=== PATIENT | male | born 1955 | race Caucasian/White ===

== ENCOUNTER 2021-12-04 08:41 | Inpatient (IN) ==
--- NOTE | 2021-11-23 12:01 | Anesthesiology Consultation ---
Date of Service November 23, 2021 Assessment & Plan (1) Encounter for pre-operative examination: Chart Review Chart Review: Acceptable Risk for Surgery (pending preop Covid testing results and response from PCP ) and Patient NOT seen in Pre Admission Testing -Sent note to PCP regarding if kidney function is baseline for patient- will await results Per nursing assessment 11/23/2021, pt traveled to [place] on 10/26/21 to visit family (drove). No PPE. No large crowds. No known Covid positive exposures or Covid related symptoms. No known COVID infection in the past 90 days. Patient is fully vaccinated for COVID. Preop Covid testing will need done 2-4 days prior to surgery= will await results History Surgery Operation Date: 12/04/21 07:15 Proposed Procedures p C7-T1 Anterior Cervical Discectomy Fusion; Neruo Monitoring - Micheal Adhikari DO Height/Weight Height: 5 ft 10 in Weight: 90.718 kg Allergies Allergy/AdvReac Type Severity Reaction Status Date / Time No Known Allergies Allergy Verified 11/23/21 10:14 Medications Home Medications Medication Instructions Recorded Confirmed Last Taken ascorbic acid (vitamin C) 500 mg 500 mg PO QAM 11/23/21 11/23/21 Unknown tablet (Vitamin C) aspirin 81 mg chewable tablet 81 mg PO QAM 11/23/21 11/23/21 Unknown atorvastatin 20 mg tablet (Lipitor) 20 mg PO QAM 11/23/21 11/23/21 Unknown calcium phosphate,dibasic 77 1 tab PO QAM 11/23/21 11/23/21 Unknown mg-vitamin D3 400 unit tablet citalopram 40 mg tablet (Celexa) 40 mg PO QAM 11/23/21 11/23/21 Unknown famotidine 20 mg tablet (Pepcid) 20 mg PO QAM 11/23/21 11/23/21 Unknown lisinopril 10 mg tablet 10 mg PO QAM 11/23/21 11/23/21 Unknown oxycodone 10 mg tablet 10 mg PO TID PRN 11/23/21 11/23/21 Unknown Past Medical History Medical History GERD (gastroesophageal reflux disease) History of syncope HAD 1 EPISODE IN 2007, WAS SEEN BY CARDIO AT THE TIME CLEARED; UNSURE OF WHAT CAUSED EPISODE WAS TOLD BY EVERYTHING WAS FINE W/ HIS HEART. (PT THINKS [facility] NO ISSUES SINCE Hyperlipidemia Hypertension Personal history of renal cancer KIDNEY REMOVED IN 2019- NO CHEMO OR RADIATION NECESSARY- HAD DONE IN [place]- DR OROZCO- NO CURRENT ISSUES S/p nephrectomy RIGHT- DUE TO RENAL CA- DONE IN [place]- DR OROZCO Past Surgical History Surgical History S/P colonoscopy S/P decompression of ulnar nerve RIGHT S/P hip replacement left S/P lumbar spine operation 10 YRS AGO Social History Smoking Status: Former smoker Do You Dip or Chew Tobacco: No Smoking End Date: 1999 Hx Alcohol Use: Yes Alcohol type: beer, wine and hard liquor alcohol intake frequency: holidays/special occasions only Hx Substance Use: Yes (HELPS W/ PAIN AND APPETITE- USES PRN) substance use type: marijuana Lab Results Anesthesia Preop Results Results Anesthesia Widget: WBC 8.42 K/uL (4.8-10.8) 11/21/21 Hgb 14.4 g/dL (14.0-18.0) 11/21/21 Hct 41.9 % (42-52) L 11/21/21 Plt 174 K/uL (130-400) 11/21/21 Na 137 mmol/L (136-145) 11/21/21 K 4.8 mmol/L (3.5-5.1) 11/21/21 Cl 107 mmol/L (98-107) 11/21/21 CO2 22 mmol/L (21-32) 11/21/21 BUN 42 mg/dl (6-23) H 11/21/21 Creat 2.06 mg/dl (0.6-1.4) H 11/21/21 Glucose Level 125 mg/dl (70-99(Fasting)) H 11/21/21 PTT 26.5 Seconds (21.0-31.0) 11/21/21 Urine Color Dark Yellow 11/21/21 Urine Appearance Clear (Clear) 11/21/21 Urine pH 5.0 (4.5-7.5) 11/21/21 Urine Specific [place] 1.028 (1.000-1.030) 11/21/21 Urine Protein Negative (Negative) 11/21/21 Urine Glucose (UA) Negative (Negative) 11/21/21 Urine Ketones Trace (Negative) H 11/21/21 Urine Blood Negative (Negative) 11/21/21 Urine Nitrite Negative (Negative) 11/21/21 Urine Bilirubin Negative (Negative) 11/21/21 Urine Urobilinogen Negative (Negative) 11/21/21 Urine Leukocyte Esterase Negative (Negative) 11/21/21 Testing Laboratory Results 11/21/21= URINE CULTURE: No growth Electrocardiogram Date: 11/21/21 Sinus rhythm with short FL with occasional PACs at 73 bpm Otherwise normal EKG per cardio Chest X-Ray Date: 11/21/21 Findings: + NAD
[~2021-12-04 08:41] MED LIST: ACETAMINOPHEN 500 MG TAB PO SCH; CeleBREX 200 MG CAP PO SCH; GABAPENTIN 300 MG CAP PO SCH; LR 15ML/HR IV SCH; SUGAMMADEX SODIUM 200 MG/2 ML VIAL IV ONE; ceFAZolin 2000MG 2,000 MG/15 ML SYR IV SCH
[2021-12-04] MEDS ORDERED: LIDOCAINE 2% 2 ML VIAL/AMP(20MG/ML) INFIL ONE (08:48)
[2021-12-04] MEDS ORDERED: fentaNYL citrate 100 MCG/2 ML VIAL ONE (08:48)
[2021-12-04] MEDS ORDERED: PROPOFOL IV EMULSION 10 MG/ML 20 ML VIAL IV ONE (08:48)
[2021-12-04] MEDS ORDERED: DEXAMETHASONE SOD INJ 4 MG/ML VIAL ONE (08:48)
[2021-12-04] MEDS ORDERED: MIDAZOLAM HCL 1 MG/ML 2ML VIAL ONE (08:48)
[2021-12-04] MEDS ORDERED: NEOSTIGMINE METHYLSULFATE 1 MG/ML 10ML VIAL ONE (08:48)
[2021-12-04] MEDS ORDERED: GLYCOPYRROLATE 0.2 MG/ML VIAL ONE (08:48)
[2021-12-04] MEDS ORDERED: ONDANSETRON INJ 2 MG/ML 2 ML VIAL ONE (08:48)
--- NOTE | 2021-12-04 09:23 | History & Physical Bridge Note ---
Date of Service December 04, 2021 History & Physical Bridge Note I have examined the patient, reviewed the History & Physical and in the interval since the performance of the History & Physical I have noted the following changes of clinical significance: no changes noted
--- NOTE | 2021-12-04 09:25 | History & Physical Report ---
Date of Service December 04, 2021 Assessment & Plan (1) Cervical stenosis of spinal canal: Plan: See 7 T1 anterior cervical discectomy and fusion History of Present Illness Chief Complaint: Neck and arm pain Primary Care Provider: Junito Puga DO This is a 66-year-old male presents with chronic persistent neck and arm pain after failed course of nonoperative care is here for surgical invention. Allergies Allergy/AdvReac Type Severity Reaction Status Date / Time No Known Allergies Allergy Verified 12/04/21 09:24 Home Medications Medication Instructions Recorded Confirmed Type ascorbic acid (vitamin C) 500 mg 500 mg PO QAM 11/23/21 11/23/21 History tablet (Vitamin C) aspirin 81 mg chewable tablet 81 mg PO QAM 11/23/21 11/23/21 History atorvastatin 20 mg tablet (Lipitor) 20 mg PO QAM 11/23/21 11/23/21 History calcium phosphate,dibasic 77 1 tab PO QAM 11/23/21 11/23/21 History mg-vitamin D3 400 unit tablet citalopram 40 mg tablet (Celexa) 40 mg PO QAM 11/23/21 11/23/21 History famotidine 20 mg tablet (Pepcid) 20 mg PO QAM 11/23/21 11/23/21 History lisinopril 10 mg tablet 10 mg PO QAM 11/23/21 11/23/21 History oxycodone 10 mg tablet 10 mg PO TID PRN 11/23/21 11/23/21 History Past Med/Surg History Medical History GERD (gastroesophageal reflux disease) History of syncope HAD 1 EPISODE IN 2007, WAS SEEN BY CARDIO AT THE TIME CLEARED; UNSURE OF WHAT CAUSED EPISODE WAS TOLD BY EVERYTHING WAS FINE W/ HIS HEART. (PT THINKS [facility] NO ISSUES SINCE Hyperlipidemia Hypertension Personal history of renal cancer KIDNEY REMOVED IN 2019- NO CHEMO OR RADIATION NECESSARY- HAD DONE IN [place]- DR OROZCO- NO CURRENT ISSUES S/p nephrectomy RIGHT- DUE TO RENAL CA- DONE IN [place]- DR OROZCO Surgical History S/P colonoscopy S/P decompression of ulnar nerve RIGHT S/P hip replacement left S/P lumbar spine operation 10 YRS AGO Social History Smoking Status: Former smoker Smoking End Date: 1999; Second Hand Exposure: No; Do You Dip or Chew Tobacco: No; Tobacco Cessation Education Requested by Patient: No Hx Alcohol Use: Yes Alcohol type: beer, wine and hard liquor Hx Substance Use: Yes (HELPS W/ PAIN AND APPETITE- USES PRN) Preferred Language: Dutch Communication Ability: Effective Hand Launderer Required: No Beliefs That Will Affect Care: None Current Living Situation: Spouse Other Information That Helps Us Care for You: No Feels Safe at Home: Yes Safety Concerns: Feels Safe At This Time Assistive Devices: Denture - Upper and Glasses Physical Exam Physical Exam: Patient is alert and oriented Heart regular rhythm Lungs clear
[2021-12-04] MEDS ORDERED: ceFAZolin 330 MG/ML 1 GM VIAL ONE (09:47)
[2021-12-04] MEDS ORDERED: fentaNYL citrate 100 MCG/2 ML VIAL IV PRN (09:48)
[2021-12-04] MEDS ORDERED: ePHEDrine sulfate 50 MG/ML AMP IV PRN (09:48)
[2021-12-04] MEDS ORDERED: ATROPINE SULFATE 0.1 MG/ML 10ML SYR IV PRN (09:48)
[2021-12-04] MEDS ORDERED: ONDANSETRON INJ 2 MG/ML 2 ML VIAL IV PRN ×2 (09:48→13:38)
[2021-12-04] MEDS ORDERED: HYDROmorphone INJ 2 MG/ML SYR/VIAL ONE (10:10)
[2021-12-04] MEDS ORDERED: FLOSEAL HEMOSTATIC MATRIX 10ML TOP ONE (10:27)
--- NOTE | 2021-12-04 11:14 | Operative Report ---
Post Operative Report Pre & Post Diagnosis Operation Date: 12/04/21 10:05 Pre-Op Diagnosis: Cervical spinal stenosis with radiculopathy Post-Op Diagnosis: Same I identified the patient and participated in the time-out.: Yes Procedure Operation Date: 12/04/21 10:05 Actual Procedures #1 anterior cervical discectomy with bilateral foraminotomies C7-T1. #2 anterior cervical arthrodesis C7-T1. #3 placement of 10 mm spiral cage filled with I factor C7-T1. #4 application of guevara plate and screws across C7-T1. Surgeon Micheal Adhikari, [id number] Operator Merlyn Perez Estimated Blood Loss 10 Findings Consistent with Post-Op Diagnosis Specimens None Indications This is a 60-emma female presents the emergency diagnosis of failed course of nonoperative care is here for the above-mentioned procedure. Description of Procedure Patient was met with identified informed consent obtained. Patient was then taken to the operative suite underwent patient placed in supine position Keith table at [place] cigar head holer. All bony prominences well-padded eyes inspected to ensure no external pressure placed upon them. This point the anterior cervical spine was prepped and draped no sterile fashion. With assistance of fluoroscopy notified the C7-T1 disc base and transverse incision was placed along the right anterior aspect of the cervical spine overlying this region. Blunt dissection with the assistance of Bovie cautery performed down to and exposing the anterior cervical spine at C7-T1. Several 10 retractors placed. I then performed a complete discectomy of C7-T1 out to the uncovertebral's bilaterally. [place] distracting pins utilized to assist in visualization. Removed all posterior fibers longitudinal ligament bilateral foraminotomies performed. The endplates were then burred to subcortical bleeding bone and a 10 mm spiral cage filled with I factor tapped in position. Distracting apparatus was removed and 5 complete screws applied with the assistance of fluoroscopy. The incision was then copiously irrigated explored to ensure no damage to surrounding structures remaining bleeding. 10 round TRACY drain inserted. The incision was then closed with 2 Vicryl fascia and 4 Monocryl for fascial closure. Steri-Strip sterile dressings placed. Patient will continue PACU stable condition. Please note spinal cord monitoring was utilized at the procedure no changes noted. Lastly Merlyn Perez was present out the entire procedure and while the patient positioning complex portions of the surgery and final skin closure. I attest to the content of the Intraoperative Record and any orders documented therein. Any exceptions are noted below.
--- NOTE | 2021-12-04 12:07 | Fluoroscopy Report ---
FL cervical 2-3V CLINICAL HISTORY: C7-T1 ACDF TECHNIQUE: 2 views were obtained with the C-arm in the OR with the above procedure. Total fluoroscopy time was 26.0 seconds. Total skin dose was 13.19 mGy. Comparison: None available at the time of this dictation. FINDINGS/IMPRESSION: Intraoperative images were obtained of ACDF. Please correlate with intraoperative fluoroscopy and operative report. ACT 112: Negative or not required by law. Electronically signed by: Colin Stephenson M.D. 12/04/2021 12:05 PM
--- NOTE | 2021-12-04 12:51 | Anesthesiology Progress Note ---
Date of Service December 04, 2021 Anesthesia Post Procedure Vital Signs Vital Signs: Temp Pulse Pulse Resp BP Pulse Ox 12/04/21 12:30 97.9 F 62 15 125/87 97 12/04/21 12:20 68 14 147/69 H 97 12/04/21 12:10 63 14 142/73 H 96 12/04/21 12:00 65 14 142/70 H 97 12/04/21 11:50 69 12 127/82 99 12/04/21 11:40 71 17 141/54 H 100 12/04/21 11:30 73 14 161/65 H 99 12/04/21 11:23 96.8 F L 82 12 140/58 L 97 12/04/21 09:27 98.6 F 63 20 135/66 97 Pain Intensity Left Arm: Pain Intensity: 4 Neck: Pain Intensity: 4 Transfer of Care Handoff Completed per policy Notes Mental Status: alert / awake / arousable and participated in evaluation Patient Amnestic to Procedure: Yes Nausea / Vomiting: adequately controlled Pain: adequately controlled Airway Patency, RR, SpO2: stable & adequate BP & HR: stable & adequate Hydration State: stable & adequate Anesthetic Complications: no major complications apparent and Pt Satisfied with anesthetic care
[2021-12-04] MEDS ORDERED: ACETAMINOPHEN 1,000 MG/100 ML VIAL IV PRN (13:38)
[2021-12-04] MEDS ORDERED: FAMOTIDINE 20 MG TAB PO PRN (13:38)
[2021-12-04] MEDS ORDERED: DO NOT ADMINISTER PNEUMOCOCCAL VACCINE PRN (13:38)
[2021-12-04] MEDS ORDERED: NALOXONE HCL 0.4 MG/1 ML VIAL/CARP IV PRN (13:38)
[2021-12-04] MEDS ORDERED: HYDROmorphone INJ 0.5 MG/0.5 ML SYR IV PRN (13:38)
[2021-12-04] MEDS ORDERED: DO NOT ADMINISTER FLU VACCINE PRN (13:38)
[2021-12-04] MEDS ORDERED: bisacodyL 10 MG SUPP PR PRN (13:38)
[2021-12-04] MEDS ORDERED: RACEPINEPHRINE 2.25% NEBU SOLN 0.5 ML VIAL INH PRN (13:38)
[2021-12-04] MEDS ORDERED: METOCLOPRAMIDE HCL INJ 5 MG/ML 2 ML VIAL IV PRN (13:38)
[2021-12-04] MEDS ORDERED: ALUMINUM/MAGNESIUM SUSP 30 ML UDC PO PRN (13:38)
[2021-12-04] MEDS ORDERED: diphenhydrAMINE Capsule 25 MG CAP PO PRN (13:38)
[2021-12-04] MEDS ORDERED: PROMETHAZINE HCL 12.5 MG in SODIUM CHLORIDE 0.9% 50 ML IV PRN (13:38)
[2021-12-04] MEDS ORDERED: MAGNESIUM HYDROXIDE SUSP 30 ML UDC PO PRN (13:38)
[2021-12-04] MEDS ORDERED: LORazepam 0.5 MG in SYRINGE 0.25 ML IV PRN (13:38)
[2021-12-04] MEDS ORDERED: oxyCODONE HCL IR 5 MG TAB (IMMEDIATE RELEASE) PO PRN (13:38)
[2021-12-04] MEDS ORDERED: traMADol HCL 50 MG TABLET PO PRN (13:38)
[2021-12-04] MEDS ORDERED: dexAMETHasone 8 MG in SYRINGE 0 ML IV PRN (13:38)
[2021-12-04] MEDS ORDERED: hydrOXYzine HCl 25 MG TAB PO PRN (13:38)
[2021-12-04] MEDS ORDERED: ONDANSETRON 4 MG OD TAB PO PRN (13:38)
[2021-12-04] MEDS ORDERED: LORazepam 0.5 MG TAB PO PRN (13:38)
[2021-12-04] MEDS ORDERED: SOD PHOSPHATE/SOD BIPHOSPHATE ENEMA 132 ML BTL PR PRN (13:38)
[2021-12-04] MEDS ORDERED: ACETAMINOPHEN 500 MG TAB PO PRN (13:38)
[2021-12-04] MEDS: SODIUM CHLORIDE 0.9% 1000ML 1,000 ML IV SCH ×2 (14:52→23:59)
[2021-12-04] MEDS: HYDROmorphone INJ 1 MG/ML SYRINGE IV PRN ×2 (15:32→20:16)
--- NOTE | 2021-12-04 16:39 | Hospitalist Consultation ---
Date of Consultation December 04, 2021 Assessment & Plan (1) Cervical stenosis of spinal canal: s/p anterior cervical discectomy with bilateral foraminotomies - Pain control, perioperative antibiotics, TRACY drain management per Dr. Adhikari. - Recommend use of incentive spirometer q1h wa for atelectasis/pna prevention - PT/OT eval when able to advance activity - Diet - started on clear liquids, advance as written - DVT ppx advised, drug choice/dose/duration at ortho's discretion - Wean supplemental O2 - weaned off during my visit - Cap fluids later this evening if he continues to tolerate oral intake (2) Essential hypertension: - Well controlled, takes Lisinopril (3) Mixed hyperlipidemia: - Continue Atorvastatin (4) CKD (chronic kidney disease) stage 3, GFR 30-59 ml/min: clinical research associate baseline 1.6-1.9 as per PCP notes Sales Promotion Officer on preop labs 2.0 and BUN elevated at 42 but was on prednisone around the time of labs hold lisinopril for AM until labs and BP reassessed (5) GERD (gastroesophageal reflux disease): - On Pepcid at home, continue (6) Personal history of renal cancer: - s/p R nephrectomy in 2019 - No recurrence or issues since then (7) Depression: - Continue Celexa Recommendations as outlined above. Thank you for allowing us to participate in the care of your patient, will follow along for at least 1 day post op. Plan to be d/w attending, Dr. Elena. Supervising Physician Co-Signing Physician Notes PA Supervision Note: I personally saw and examined the patient. I verified all gutierrez points and agree with FREDERICK Montero with the following exceptions and/or additions: S-Doing well post-op, eating clear liquids, no pain. Has not yet urinated. History and ROS reviewed O- Vitals reviewed Gen: [AAOx3, NAD] HEENT: [anicteric sclerae, EOMI, neck in C-collar, TRACY drain with scant bloody fluid] CV: [RRR no mgr nl S1S2] Pulm: [CTAB no wcr] Abd: [+BS soft NT ND no masses or hernias] Ext: [no edema, 2+ DP pulses] Skin: [no rashes, warm/dry] Neuro: [full strength throughout] Labs from preop reviewed A/P-66 yo male here with history as above, now s/p ACDF. DOing well post-op adv diet as tolerated as per Surgeon post-op management as per Ortho, pain control, bowel regimen, activity hold lisinopril till AM to ensure BP stable and clinical research associate stable given CKD stage 3 History of Present Illness Reason for Consultation: medical management Requesting Physician: Dr. Adhikari Attending Physician: Micheal Adhikari, DO History of Present Illness Mr. Cervantes is a pleasant 66 yo WM with a pmhx of HTN, HLD, and renal cell ca s/p nephrectomy in 2019 who was hospitalized under Dr. Adhikari's service due to cervical stenosis with radiculopathy and is POD#0 s/p anterior cervical dis cectomy with bilateral foraminotomies. He is currently seen in his hospital room, resting comfortably and verbalizes no complaints. He had general anesthesia, has no prior h/o complications with anesthesia or family history of such. He received Ancef for antibiotic prophylaxis. He had an uneventful perioperative course with no immediate complications. He reports no complaints of chest pain, dyspnea, n/v/d, f/c, headache, or uncontrolled pain. He has been able to eat jell-o, sherbert, and drink some water without issue. Diet has been advanced to fulls this evening. No questions or concerns verbalized by patient. Hospitalists have been consulted for routine post-operative medical management. Allergies Allergy/AdvReac Type Severity Reaction Status Date / Time No Known Allergies Allergy Verified 12/04/21 09:24 Home Medications Medication Instructions Recorded Confirmed Type ascorbic acid (vitamin C) 500 mg 500 mg PO QAM 11/23/21 12/04/21 History tablet (Vitamin C) aspirin 81 mg chewable tablet 81 mg PO QAM 11/23/21 12/04/21 History atorvastatin 20 mg tablet (Lipitor) 20 mg PO QAM 11/23/21 12/04/21 History calcium phosphate,dibasic 77 1 tab PO QAM 11/23/21 11/23/21 History mg-vitamin D3 400 unit tablet citalopram 40 mg tablet (Celexa) 40 mg PO QAM 11/23/21 12/04/21 History famotidine 20 mg tablet (Pepcid) 20 mg PO QAM 11/23/21 12/04/21 History lisinopril 10 mg tablet 10 mg PO QAM 11/23/21 12/04/21 History oxycodone 10 mg tablet 10 mg PO TID PRN 11/23/21 12/04/21 History Patient History Medical History (Updated 12/04/21 @ 17:27 by Rosey Elena MD) CKD (chronic kidney disease) stage 3, GFR 30-59 ml/min GERD (gastroesophageal reflux disease) History of syncope HAD 1 EPISODE IN 2007, WAS SEEN BY CARDIO AT THE TIME CLEARED; UNSURE OF WHAT CAUSED EPISODE WAS TOLD BY EVERYTHING WAS FINE W/ HIS HEART. (PT THINKS CARDIO AT [facility]) NO ISSUES SINCE Hyperlipidemia Hypertension Personal history of renal cancer KIDNEY REMOVED IN 2019- NO CHEMO OR RADIATION NECESSARY- HAD DONE IN [place]- DR OROZCO- NO CURRENT ISSUES S/p nephrectomy RIGHT- DUE TO RENAL CA- DONE IN [place]- DR OROZCO Surgical History S/P colonoscopy S/P decompression of ulnar nerve RIGHT S/P hip replacement left S/P lumbar spine operation 10 YRS AGO Social History Smoking Status: Former smoker Smoking End Date: 1999; Second Hand Exposure: No; Do You Dip or Chew Tobacco: No; Tobacco Cessation Education Requested by Patient: No Hx Alcohol Use: Yes Alcohol type: beer, wine and hard liquor Hx Substance Use: Yes (HELPS W/ PAIN AND APPETITE- USES PRN) Preferred Language: Polish Communication Ability: Effective Customer Services Manager Required: No Beliefs That Will Affect Care: None marital status: Current Living Situation: Spouse Other Information That Helps Us Care for You: No Feels Safe at Home: No Is there a partner from a previous relationship who is making you feel unsafe now?: No Any Concerns about Your Family Situation: No Would You Like to Speak to Someone About Your Situation: No Safety Concerns: Feels Safe At This Time Assistive Devices: None Review of Systems Review of Systems: All systems reviewed and are unremarkable except as noted in HPI and below. Denies fever, chills, fatigue, headache, nasal congestion, sore throat, cough, chest pain, shortness of breath, palpitations, orthopnea, PND, abdominal pain, n/v/d, constipation, dysuria, hematuria, frequency, back pain, joint pain or swelling, easy bruising or bleeding, skin lesions or rashes. Physical Exam Physical Exam: GENERAL: Well-developed, well-nourished. NAD. EYES: EOMI. PERRLA. Anicteric. HENT: in cervical collar, anterior neck surgical incision dressed, TRACY drain visualized. LUNGS: Clear to auscultation bilaterally. No accessory muscle use. No W/R/R. CARDIOVASCULAR: Regular rate and rhythm. No M/G/R. No JVD. ABDOMEN: Soft, non-tender and non-distended. No palpable masses. Bowel sounds normoactive x 4 quad. EXTREMITIES: No edema. Non-tender. Peripheral pulses +2/4. NEUROLOGIC: A&O x3. No focal neurological deficits. CN II-XII grossly intact. PSYCHIATRIC: Cooperative. Appropriate mood and affect. SKIN: Warm, dry, intact. No rashes or lesions. Results & Data Results & Data ([facility]) Vital Signs (Past 12 Hours) Vital Signs Temp Pulse Pulse Resp BP Pulse Ox 12/04/21 13:45 68 18 97 12/04/21 13:30 36.7 C 62 16 157/80 H 97 12/04/21 13:15 64 17 151/61 H 96 12/04/21 13:00 63 17 141/74 H 96 12/04/21 12:45 61 16 152/65 H 96 12/04/21 12:30 36.6 C 62 15 125/87 97 12/04/21 12:20 68 14 147/69 H 97 12/04/21 12:10 63 14 142/73 H 96 12/04/21 12:00 65 14 142/70 H 97 12/04/21 11:50 69 12 127/82 99 12/04/21 11:40 71 17 141/54 H 100 12/04/21 11:30 73 14 161/65 H 99 12/04/21 11:23 36 C L 82 12 140/58 L 97 12/04/21 09:27 37 C 63 20 135/66 97 Diagnostic Findings Cervical Spine X-Ray 12/04/21 00:00 FL cervical 2-3V CLINICAL HISTORY: C7-T1 ACDF TECHNIQUE: 2 views were obtained with the C-arm in the OR with the above procedure. Total fluoroscopy time was 26.0 seconds. Total skin dose was 13.19 mGy. Comparison: None available at the time of this dictation. FINDINGS/IMPRESSION: Intraoperative images were obtained of ACDF. Please correlate with intraoperative fluoroscopy and operative report. ACT 112: Negative or not required by law. Electronically signed by: Colin Stephenson M.D. 12/04/2021 12:05 PM PG Care Time/CCT Total # of Minutes Spent Total Time Spent with Patient: Total time spent is greater than 50% in coordination of care (as documented) at patient's floor/unit and/or counseling patient: Coding Level of Care Code 02171 Inpt Consult Level 3 Diagnoses Cervical stenosis of spinal canal M48.02 Essential hypertension I10 Mixed hyperlipidemia E78.2 GERD (gastroesophageal reflux disease) K21.9 Personal history of renal cancer Z85.528 Depression F32.A CKD (chronic kidney disease) stage 3, GFR 30-59 ml/min N18.30
[2021-12-04] MEDS: ceFAZolin 2000MG 2,000 MG/15 ML SYR IV SCH (18:01)
[2021-12-04] MEDS ORDERED: DOCUSATE SODIUM/SENNA 50/8.6MG TAB PO SCH (21:00)
[2021-12-05] MEDS: ceFAZolin 2000MG 2,000 MG/15 ML SYR IV SCH (00:01)
[2021-12-05 05:51] LABS: Basophils # (auto) 0.02 K/uL (0-0.2); Basophils % (auto) 0.1 %; Eosinophils # (auto) 0.01 K/uL (0-0.50); Eosinophils % (auto) 0.1 %; Hematocrit (blood only) 36.9 % (40.1-51.0); Hemoglobin 12.7 g/dl (14.0-18.0); Immature Granulocytes # (auto) 0.04 K/uL (0.00-0.02); Immature Granulocytes % (auto) 0.3 %; Lymphocytes # (auto) 3.04 K/uL (1.2-3.4); Lymphocytes % (auto) 20.1 %; Mean Corpuscular Hemoglobin 32.4 pg (25.0-34.0); Mean Corpuscular Hgb Conc 34.4 g/dL (32.0-36.0); Mean Corpuscular Volume 94.1 fL (80.0-100.0); Mean Platelet Volume 12.1 fL (9.4-12.4); Monocytes # (auto) 0.86 K/uL (0.24-0.82); Monocytes % (auto) 5.7 %; Neutrophils # (auto) 11.16 K/uL (1.4-6.5); Neutrophils % (auto) 73.7 %; Platelet Count 166 K/uL (130-400); RDW Coefficient of Variation 13.1 % (11.5-14.5); RDW Standard Deviation 44.6 fL (36.4-46.3); Red Blood Count 3.92 M/uL (4.63-6.08); White Blood Count 15.13 K/ul (4.8-10.8)
[2021-12-05] MEDS ORDERED: POLYETHYLENE (MIRALAX) 17 GM PACK PO SCH (06:00)
[2021-12-05 06:26] LABS: BUN Creatinine Ratio 19.5 (10-20); Calcium 8.7 mg/dl (8.5-10.1); Creatinine Clr Calc Pharmacy 50.2 ml/min; Est GFR (African American) 49.8 ml/min; Est GFR (Non-African American) 42.9 ml/min; Magnesium 1.9 mg/dl (1.7-2.4); Potassium 4.6 mmol/L (3.5-5.1)
[2021-12-05] MEDS ORDERED: ATORVASTATIN 20 MG TAB PO SCH (09:00)
[2021-12-05] MEDS ORDERED: CITALOPRAM 40 MG TAB PO SCH (09:00)
[2021-12-05] MEDS ORDERED: FAMOTIDINE 20 MG TAB PO SCH (09:00)
[2021-12-05] MEDS ORDERED: lisinopril 10 MG TAB PO SCH ×2 (09:00)
[2021-12-05] MEDS ORDERED: dexAMETHasone 6 MG in SYRINGE 0 ML IV SCH (09:00)
[2021-12-05] MEDS ORDERED: ASPIRIN 81 MG CHEW PO SCH (09:00)
--- NOTE | 2021-12-05 10:35 | Discharge Summary ---
Date of Service December 05, 2021 Admission HPI Per Admitting Provider This is a 66-year-old male presents with chronic persistent neck and arm pain after failed course of nonoperative care is here for surgical invention. Principal Diagnosis Cervical radiculopathy Discharge Data Allergies Allergy/AdvReac Type Severity Reaction Status Date / Time No Known Allergies Allergy Verified 12/04/21 09:24 Consultations 12/04/21 13:38 Consult Hospitalist Routine Procedures Performed Operation Date: 12/04/21 10:05 Actual Procedures p C7-T1 Anterior Cervical Discectomy Fusion; Spinal Cord Monitoring(Not Applicable) - Micheal Adhikari DO Ordered Studies 12/04/21 [place] cervical 2-3V Routine Hospital Course (1) Cervical stenosis of spinal canal: Patient 1 anterior cervical discectomy fusion tolerated this well schedule orthopedic for postoperative. Postop 1 he was swallowing well no hoarseness. Arm symptoms markedly improved. Pain well controlled. TRACY drain decreased probably. Separately discharged home. Discharge orders instructions found in chart for further review. Total Time Total Time Spent Total Time Spent (In Minutes): 20 minutes Discharge Plan Discharge Items Patient Disposition: Home - Self-Care Reason For Visit: Spinal Stenosis, Cervical Region Discharge Diagnosis: Cervical radiculopathy Activity: As commented below Non-emergency contact: Primary Care Provider Call non-emergency contact if: you have any medication questions Follow-up/Referrals: Junito Puga DO [Primary Care Provider] - Diet: Regular Addtl Attending Provider Instructions: ACTIVITY RECOMMENDATIONS: SELF CARE INSTRUCTIONS AFTER CERVICAL FUSIONS 1. No smoking. Smoking drastically decreases the chance of a solid fusion. 2. No bending, lifting more than 5 pounds, or twisting (roll like a log when turning in bed). 3. You may shower 3 days after surgery. Thoroughly dry wound. Do not soak in the tub. 4. Cervical collar: Must be worn at all times including sleeping. You may remove the brace only to bath, eat and if you are sitting in a recliner. 5. Please walk as much as you can for exercise. Gradually increase the distance that you walk as your endurance increases. SPECIAL CARE INSTRUCTIONS: VERY IMPORTANT TO READ AND REVIEW A. Do not take any anti-inflammatory medications (i.e. Indocin, Advil, Aspirin, Naprosyn, Aleve, Motrin, etc.) as these may inhibit the chance of a solid fusion. Tylenol is okay to take. B. Your surgical incision has been closed with a cosmetic suture under the skin that will dissolve in about 6 weeks. In 14 days, you can use a pair of clean scissors and cut the suture that is left outside of the skin at the ends of your incision. C. Complications are uncommon, but please contact us if you have any signs or symptoms of: 1. wound infection (fever higher than 102.5 degrees F, redness, separation of wound, drainage, or increasing pain from the incision) 2. blood clots in legs (pain, swelling, redness and warmth in legs) 3. urinary tract infection (fever higher than 102.5 degrees, burning upon urination or increased frequency of urination) 4. nerve problems (inability to walk on your toes or heels, numbness, loss of bowel or bladder control) 5. any other symptoms that concern you. D. Please call the office at if you have any concerns or questions about your operation or recovery. MANAGING PAIN AFTER SPINAL SURGERY 1. Narcotic medication is intended for short-term use and will be provided for surgical pain. Surgical pain usually lasts for a period of 4-6 weeks. Narcotic medication includes Percocet, Vicodin, Darvocet, Tylenol #3 or Lortab. 2. Longer-term pain is more appropriately treated with non-narcotic medication such as Tylenol ES. 3. Muscle spasm is not appropriately treated with narcotics. Muscle relaxers such as Soma, Flexeril or Skelaxin can be used along with Tylenol ES. 4. Remember that we all live with some "aches and pains". This is not unusual or uncommon after an injury or as we get older. 5. We will provide appropriate medication within the normal guidelines of their prescribed use. We will also be very cautious and aware of potential abuse and extended duration of patients' medication needs. 6. Please allow 2-3 days to process refills. Prescriptions will not be mailed but must be picked up at the office. FOLLOW UP VISIT: Keep your scheduled follow-up appointment. Any questions, please call the office at . Pending Studies at Discharge: No Stand-Alone Forms: [employer], Smoking Cessation Medications and DC Order Prescriptions: New tramadol 50 mg tablet 50 mg PO Q6H PRN (Reason: pain, moderate) Qty: 30 0RF oxycodone 5 mg tablet 5 mg PO Q6H PRN (Reason: pain, severe) Qty: 30 0RF Continued atorvastatin [Lipitor] 20 mg Tablet 20 mg PO QAM citalopram [Celexa] 40 mg Tablet 40 mg PO QAM famotidine [Pepcid] 20 mg Tablet 20 mg PO QAM ascorbic acid (vitamin C) [Vitamin C] 500 mg Tablet 500 mg PO QAM lisinopril 10 mg Tablet 10 mg PO QAM aspirin 81 mg Tablet,Chewable 81 mg PO QAM calcium phos,dibas-vitamin D3 77-400 mg-unit Tablet 1 tab PO QAM oxycodone 10 mg Tablet 10 mg PO TID PRN (Reason: Pain) Discharge Orders: Discharge Order (Routine); Ordered 12/05/21 Ordered By: Micheal Adhikari Admission Data Admit Date/Time: 12/04/21 11:19 Attending Provider: Micheal Adhikari Admit Provider: Micheal Adhikari Primary Care Provider: Junito Puga Other Providers: Rosey Elena
--- NOTE | 2021-12-05 11:43 | Hospitalist Progress Note ---
Date of Service December 05, 2021 Assessment & Plan (1) Cervical stenosis of spinal canal: Plan: s/p anterior cervical discectomy with bilateral foraminotomies - Pain control, perioperative antibiotics, TRACY drain management per Dr. Adhikari. 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 Please notify if any acute needs should arise while the patient remains in house. Plan to be d/w Dr. Elena. Admission and Anticipated Discharge Date Admission Date: December 04, 2021 Supervising Physician Co-Signing Physician Notes PA Supervision Note: I did not personally see or examine the patient today, but I verified all gutierrez points of FREDERICK Montero's assessment and plan with the following exceptions/additions: None Subjective Patient seen on daily rounds. He is pod #[address] [facility] [address] Adhikari. Doing well, no complaints of chest pain, dyspnea, n/v/d, f/c, swallowing difficulty, or uncontrolled pain. Per pt, plan is for dc today. Review of Systems Review of Systems: All systems reviewed and are unremarkable except as noted in HPI and below. Denies fever, chills, fatigue, headache, nasal congestion, sore throat, cough, chest pain, shortness of breath, palpitations, orthopnea, PND, abdominal pain, n /v/d, constipation, dysuria, hematuria, frequency, back pain, joint pain or swelling, easy bruising or bleeding, skin lesions or rashes. Physical Exam Physical Exam: GENERAL: 66 yo Well-developed, well-nourished WM. NAD. HENT: in cervical collar, anterior neck surgical incision dressed, TRACY drain visualized. LUNGS: Clear to auscultation bilaterally. No accessory muscle use. No W/R/R. CARDIOVASCULAR: Regular rate and rhythm. No M/G/R. No JVD. ABDOMEN: Soft, non-tender and non-distended. BS normoactive x 4 quad. EXTREMITIES: No edema. Non-tender. Peripheral pulses +2/4. NEUROLOGIC: A&O x3. Nonfocal PSYCHIATRIC: Cooperative. Appropriate mood and affect. SKIN: Warm, dry, intact. No rashes or lesions. Results & Data Results & Data ([facility]) Vital Signs (Past 12 Hours) Vital Signs Temp Pulse Pulse Resp BP Pulse Ox O2 Del Method 12/05/21 08:27 Room Air 12/05/21 07:36 55 L 18 98 Room Air 12/05/21 07:06 36.6 C 56 L 18 172/73 H 95 Room Air 12/05/21 06:00 36.5 C 55 L 18 148/77 H 98 Room Air 12/05/21 04:00 36.8 C 63 18 133/74 97 Nasal Cannula 12/05/21 02:00 36.5 C 59 L 18 132/73 97 Nasal Cannula 12/05/21 03:55 60 18 97 Nasal Cannula 12/05/21 00:00 36.6 C 57 L 18 126/72 97 Nasal Cannula O2 Flow Rate 12/05/21 08:27 12/05/21 07:36 12/05/21 07:06 12/05/21 06:00 12/05/21 04:00 2 12/05/21 02:00 2 12/05/21 03:55 1 12/05/21 00:00 2 Laboratory Results 12/05/21 05:20 12/05/21 05:20 PG Care Time/CCT Total # of Minutes Spent Total Time Spent with Patient: Total time spent is greater than 50% in coordination of care (as documented) at patient's floor/unit and/or counseling patient: Coding Level of Care Code 21902 Subseq Hosp Care Lvl 2 Diagnoses Cervical stenosis of spinal canal M48.02 Essential hypertension I10 Mixed hyperlipidemia E78.2 CKD (chronic kidney disease) stage 3, GFR 30-59 ml/min N18.30 GERD (gastroesophageal reflux disease) K21.9 Personal history of renal cancer Z85.528 Depression F32.A
== END 2021-12-05 13:02 | disposition home or self-care (01) | DRG 473 ==
LOC: ASU 08:41 → 3E 11:19